=== PATIENT | female | born 1945 | race Caucasian/White ===

== ENCOUNTER 2023-05-07 12:06 | Emergency (ER) | payer MEDICARE, OTHER, SELFPAY ==
--- NOTE | ~2023-05-07 | CT_ITS ---
EXAMINATION: CT CHEST WITH CONTRAST CT ABDOMEN AND PELVIS WITH CONTRAST CLINICAL INFORMATION: Mass on chest x-ray. Question lung carcinoma. Abdominal cramps, blood in stool, question diverticulitis. COMPARISON: None available. TECHNIQUE: Multidetector volumetric imaging was performed through the chest, abdomen and pelvis following the administration of oral and 85 mL of Omnipaque 350 intravenous contrast. Sagittal and coronal reformatted images were obtained on the technologist's workstation. Axial MIP volume rendering provided. DLP: 782 mGy-cm. FINDINGS: CHEST: Lungs: Trachea and central airway are patent. Multifocal airspace and ground-glass opacities are present in bilateral lungs. Multifocal opacities in the right middle lobe, prominent multifocal opacities in the right lower lobe, prominent multifocal opacities in the left lower lobe, and scattered foci in the left upper lobe, as well as involvement of the right upper lobe. Findings are nonspecific. Differential considerations include: infectious, inflammatory process. There is an 8 mm nodule in the right lower lobe. Hounsfield measurement 302. Partial calcification is suspected in the nodule. 4.5 mm nodule in the right lower lobe (5:341) No pleural effusion. No pneumothorax. Mediastinum: Visualized thyroid gland appears unremarkable. Subcentimeter mediastinal lymph nodes. Subcentimeter right hilar lymph node. No pathologically enlarged lymph nodes seen. The heart is of normal size. There is no pericardial effusion. Central vascular structures are unremarkable. Chest Wall/Axilla: Right axillary lymph node measuring 1 cm. Osseous structures: Multilevel degenerative changes in the spine. Bilateral glenohumeral joint arthritis. ABDOMEN/PELVIS: Liver, Gallbladder, Biliary Tree: Slight low-attenuation of the liver with respect to spleen, suggesting mild hepatic steatosis. No liver lesion seen. No intrahepatic biliary duct dilatation. The gallbladder is unremarkable with no evidence of radiopaque gallstones, gallbladder wall thickening, or pericholecystic inflammatory changes. Pancreas: Normal enhancement. No acute inflammatory changes. Spleen: Unremarkable. Adrenal Glands: Unremarkable. Kidneys and Ureters: 4.3 cm right renal cyst, for which no follow-up is indicated. Mild prominence of the right renal pelvis without hydroureter. No acute findings seen in the left kidney. Bladder: Unremarkable. Gastrointestinal Tract: There is diverticula in the sigmoid colon and descending colon. The sigmoid colon and descending colon are nondistended, with diffuse wall thickening, which could reflect diverticulitis or colitis. The stomach is nondistended. No dilated small bowel loops. Appendix appears unremarkable. No free air or significant free fluid is seen. Abdominal Wall: No hernia is demonstrated. Lymphovascular Structures: Lymph nodes: No pathologically enlarged lymph nodes are seen in the abdomen or pelvis. There is a 1.1 cm right inguinal lymph node. Vascular: Normal caliber aorta. Atherosclerotic vascular calcification. Pelvic Viscera: Unremarkable. OSSEOUS STRUCTURES: Left hip arthroplasty. Levoconvex scoliosis of the lumbar spine. Multilevel advanced disc degenerative changes in the visualized lumbar spine. Right hip arthritis. No suspicious bony lesion is seen. CT/CT abdomen pelvis w IV con IMPRESSION: 1. Multifocal airspace and ground-glass opacities in bilateral lungs. Differential considerations include: infectious, inflammatory processes. Recommend short-term follow-up CT for reassessment and to ensure resolution of the findings. 2. Pulmonary nodules. Larger nodule measures 8 mm, having increased density, suggestive of calcification. The additional nodule measures 4.5 mm. Correlate with prior imaging if available. Attention on follow-up imaging. According to the UPDATED 2017 Fleischner Society recommendations, the advised follow-up imaging for multiple solid nodules, the largest measuring 6 mm or greater, is: LOW RISK PATIENT: CT at 3-6 months, then consider CT at 18-24 months. HIGH RISK PATIENT: CT at 3-6 months, then at 18-24 months. 3. Diverticulosis of the sigmoid colon and descending colon. Diffuse wall thickening of the sigmoid and descending colon, which could reflect sequela of diverticulitis or colitis. Recommend follow-up CT to ensure resolution of these findings, and exclude other etiologies. 4. Additional findings and details as above.
--- NOTE | ~2023-05-07 | XR_ITS ---
EXAMINATION: XR CHEST 2 VIEW CLINICAL INFORMATION: Pain COMPARISON: None TECHNIQUE: PA and lateral views of the chest obtained. FINDINGS: A 10 mm nodule is evident in the right midlung zone, between the seventh and eighth posterior ribs in the mid clavicular line. The left lung is clear. There are no pleural effusions. The cardiomediastinal silhouette is nonenlarged. Thoracolumbar scoliosis is evident. There are surgical anchors in the right humeral head. XR/XR chest 2V IMPRESSION: Right midlung zone 10 mm nodule. In the absence of prior studies documenting stability, thoracic CT is recommended for further characterization.
--- NOTE | 2023-05-07 12:41 | ED.GENADULT ---
HPI - General Adult General Stated complaint: Diarrhea 1 week Related Data Allergies Allergy/AdvReac Type Severity Reaction Status Date / Time No Known Allergies Allergy Verified 05/07/23 12:43 Course Course Course Narrative: RME- 78 year old female presents for evaluation of flu-like symptoms and diarrhea for one week. She also complains of bloody bowel movements. Plan for labs, viral swabs and stool testing
[2023-05-07 12:43] VITALS: BP 138/57; PULSE 82; RESP 16; TEMP 36.6; O2SAT 97; BMI 29.8
--- NOTE | 2023-05-07 12:43 | ECG_ITS ---
Test Reason : PAIN Blood Pressure : / mmHG Vent. Rate : 073 BPM Atrial Rate : 073 BPM P-R Int : 192 ms QRS Dur : 096 ms QT Int : 380 ms P-R-T Axes : 015 -39 018 degrees QTc Int : 418 ms Normal sinus rhythm Left axis deviation Moderate voltage criteria for LVH, may be normal variant ( R in aVL , Alvin product ) Abnormal ECG No previous ECGs available Referred By: Luis M Farah Electronically Signed By:VITOR DOMINGUEZ
[2023-05-07 13:48] LABS: MANUAL DIFF FLAG NO
[2023-05-07 13:51] LABS: Basophils Percent Auto 0.3 % (0-2); Eosinophils Percent Auto 0.3 % (0-4); Hematocrit 38.1 % (37.0-47.0); Hemoglobin 12.5 g/dl (12.0-16.0); Imm Gran Abs Auto 0.03 X10*3/uL (0.00-0.03); Imm Gran Pct Auto 0.4 % (0.0-0.4); Lymphocytes Absolute Auto 1.2 X10*3/uL (1.2-4.9); Lymphocytes Percent Auto 15.6 % (20-40); Mean Corpuscular HGB Conc 32.8 g/dl (31.0-35.0); Mean Corpuscular Hemoglobin 31.1 pg (27.0-33.0); Mean Corpuscular Volume 94.8 fL (80.0-98.0); Mean Platelet Volume 10.1 fL (9.4-12.3); Monocytes Absolute Auto 0.5 X10*3/uL (0.1-1.2); Monocytes Percent Auto 6.2 % (2-11); Neutrophils Absolute Auto 5.7 x10*3/uL (2.0-8.3); Neutrophils Percent Auto 77.2 % (45-73); Platelet Count 159 X10*3/uL (160-400); Red Blood Count 4.02 X10*6/uL (4.20-5.50); Red Cell Distribution Width 12.7 % (11.0-16.0); White Blood Count 7.4 X10*3/uL (4.8-10.8)
[2023-05-07 13:57] LABS: Prothrombin Time 12.7 SEC (11.1-13.3)
[2023-05-07 14:05] LABS: Alanine Aminotransferase 19 U/L (0-31); Albumin Level 3.7 g/dL (3.5-5.0); Alkaline Phosphatase 90 U/L (39-117); Anion Gap 10 (12-20); Aspartate Amino Transferase 22 U/L (5-31); Bilirubin Total 0.3 mg/dL (0.0-1.0); Blood Urea Nitrogen 11 mg/dL (9-16); Calcium 9.3 mg/dL (8.4-10.2); Carbon Dioxide 30 mmol/L (22-29); Chloride 105 mmol/L (96-108); Creatinine Clr Calc Pharmacy 60.4; Estimated Glomerular Filt Rate > 60; Glucose Random 139 mg/dL (60-115); Lipase 20 U/L (8-78); Potassium 4.1 mmol/L (3.3-5.1); Sodium 141 mmol/L (135-145); Total Protein 6.7 g/dL (6.5-8.0)
[2023-05-07 15:00] LABS: Influenza A PCR NEGATIVE (Negative); Influenza B PCR NEGATIVE (Negative); Resp Syncy Virus RNA Qual PCR NEGATIVE (Negative); SARS COV2 PCR INHOUSE NEGATIVE (Negative)
--- NOTE | 2023-05-07 16:37 | ED.GENADULT ---
HPI - General Adult General Chief complaint: Abdominal Pain Stated complaint: Diarrhea 1 week Time Seen by Provider: 05/07/23 16:14 Source: patient Mode of arrival: ambulatory Limitations: no limitations History of Present Illness HPI narrative: 78-year-old female history of diverticulosis, diverticulitis, hypertension, presents to ED for diarrhea for 1 week and this morning seeing small amount of blood in stool. Patient states stool is brown. Patient states she was on a cruise and tested positive for COVID started having URI symptoms then during the cruise she developed diarrhea which resolved with Imodium then started again this morning. Patient states went on a cruise 1 week ago. Patient denies any chest pain or shortness of breath. Patient denies any dizziness or headache. Related Data Previous Rx's Medication Instructions Recorded acetaminophen 325 mg capsule 325 mg PO QID PRN pain 7 days #28 05/07/23 (Tylenol) caps amoxicillin 875 mg-potassium 1 tab PO TID 10 days #30 tabs 05/07/23 clavulanate 125 mg tablet Allergies Allergy/AdvReac Type Severity Reaction Status Date / Time No Known Allergies Allergy Verified 05/07/23 12:43 Review of Systems Review of Systems: Resolved URI symptoms. Resolved COVID now diarrhea for 1 week and this morning 1 episode of blood in stool Yes all other systems are reviewed and are negative PMFSH Social History Social History Advance Directives: No Advance Directives Information Provided: No Physical Exam ED Vital Signs: Vital Signs - 24 hr 05/07/23 12:43 05/07/23 23:00 Temperature 98 F 98.8 F Pulse Rate 82 74 Respiratory Rate 16 18 Blood Pressure 138/57 L 135/63 Pulse Oximetry 97 95 Oxygen Delivery Method Room Air Room Air BMI result Body Mass Index 29.8 Const General: cooperative, healthy appearing, comfortable, no acute distress, well developed, alert and awake Orientation/consciousness: oriented to person, oriented to place, oriented to time and patient oriented x3 HENMT Head: Yes normal to inspection, Yes No palpable skull fracture present, Yes normocephalic and Yes atraumatic Eyes General: appearance normal, both eyes and all related structures Neck Neck: Yes normal visual inspection, Yes full ROM, Yes no lymphadenopathy, Yes no meningeal signs, Yes trachea midline, Yes supple, No anterior neck swelling and No tender Chest Chest palpation & inspection: normal inspection of the chest and normal palpation of entire chest wall Resp Effort & Inspection: normal respiratory effort and able to speak in complete sentences Auscultation: clear to auscultation bilaterally Cardio Jugular venous distension: no JVD Heart sounds: S1 normal heart sound present and S2 normal heart sound present GI Inspection: Yes normal to inspection Palpation (GI): Soft to palpation, not firm, Tenderness to palpation present (GI) in the LLQ and in the RLQ, no guarding and not rigid Other: Rectal exam negative for black stool, bright red blood, hemorrhaging, or melena. Stool is brown General: Yes no CVA tenderness Back/Spine/Pelvis Back: no CVA tenderness and No back tenderness Skin General skin exam: no rashes or lesions noted, elasticity normal and turgor normal Neuro General: oriented to person, oriented to place, oriented to time, patient oriented x3, gait normal, tone normal, moves all extremities, Normal light touch and pain sensation, no meningeal signs, no focal motor deficits, CN's II-XI intact bilaterally and normal sensation to monofilament Extrem General: Yes normal to inspection and Yes full ROM Psych Appearance: grossly normal, well kempt and not disheveled Medications Administered Discontinued Medications Generic Name Dose Route Start Last Admin Trade Name Freq PRN Reason Stop Dose Admin Amoxicillin/Clavulanate Potassium 875 mg 05/07/23 23:00 05/07/23 23:16 Amoxicillin/Potassium Clav 875 Mg Tablet PO 05/07/23 23:01 875 mg ONCE ONE Administration Famotidine 20 mg 05/07/23 16:40 05/07/23 16:56 Famotidine/Pf 20 Mg/2 Ml Vial IVPUSH 05/07/23 16:41 20 mg ONCE ONE Administration Sodium Chloride 1,000 mls @ 999 mls/hr 05/07/23 16:27 05/07/23 19:08 Ns IV 05/07/23 17:27 Infused .Q1H1M STA Infusion Iohexol 100 ml 05/07/23 17:58 05/07/23 17:58 Iohexol 350 Mg/Ml 100 Ml Infus..Btl IV 05/07/23 17:59 85 ml ONCE ONE Administration Medical Decision Making Medical Decision Making MDM Narrative: 78-year-old female history of diverticulosis, hypertension, diverticulitis presents to ED for 1 week of diarrhea recently went on a cruise 1 episode of bloody stool. Patient recently tested for COVID last Positive for lower abdominal tenderness on palpation. Was sent for CT scan of abdomen. Chest x-ray shows nodule will do chest CT. 10:39pm: THe abdominal CT scan shows early diverticulitis. Chest CT shows ground-glass opacities. Patient was positive for COVID as most recent last Tuesday and then tested herself negative today. Case discussed with Dr. Bah of hospitalist who states no need for antibiotics for the chest CT reading due to patient recently having COVID and his COVID presentation on CT scan. Patient could be discharged with oral antibiotics for diverticulitis. Patient informed to follow up with primary care provider. Second troponin negative. Patient given copy of labs and images for follow-up Differential Diagnosis Differential Diagnoses: The differential diagnosis associated with the presentation includes (Traveler's diarrhea, COVID, diverticulitis,) Admission/Observation Consideration of admission/observation: Escalation of care including admission/observation considered Consult Healthcare Provider Management of the patient was discussed with: Hospitalist (Dr. Ma) Lab Data MDM Lab Attestation statement: I reviewed the patient's lab results. 05/07/23 13:40 05/07/23 13:40 Labs: Lab Results 05/07/23 05/07/23 05/07/23 Range/Units 13:40 16:42 16:43 WBC 7.4 (4.8-10.8) X10*3/uL RBC 4.02 L (4.20-5.50) X10*6/uL Hgb 12.5 (12.0-16.0) g/dl Hct 38.1 (37.0-47.0) % MCV 94.8 (80.0-98.0) fL MCH 31.1 (27.0-33.0) pg MCHC 32.8 (31.0-35.0) g/dl RDW 12.7 (11.0-16.0) % Plt Count 159 L (160-400) X10*3/uL MPV 10.1 (9.4-12.3) fL Immature Gran % (Auto) 0.4 (0.0-0.4) % Neut % (Auto) 77.2 H (45-73) % Lymph % (Auto) 15.6 L (20-40) % [place] % (Auto) 6.2 (2-11) % Eos % (Auto) 0.3 (0-4) % Baso % (Auto) 0.3 (0-2) % Lymph # (Auto) 1.2 (1.2-4.9) X10*3/uL [place] # (Auto) 0.5 (0.1-1.2) X10*3/uL Eos # (Auto) 0.0 (0.0-0.4) X10*3/uL Baso # (Auto) 0.0 (0.0-0.2) X10*3/uL Abs Immat Gran (auto) 0.03 (0.00-0.03) X10*3/uL Absolute Neuts (auto) 5.7 (2.0-8.3) x10*3/uL Absolute Nucleated RBC 0.000 (0.0-0.012) X10*3/uL Nucleated RBC % (auto) 0.0 (0.0-0.2) /100WBC PT 12.7 (11.1-13.3) SEC INR 1.0 (0.9-1.1) Sodium 141 (135-145) mmol/L Potassium 4.1 (3.3-5.1) mmol/L Chloride 105 (96-108) mmol/L Carbon Dioxide 30 H (22-29) mmol/L Anion Gap 10 L (12-20) BUN 11 (9-16) mg/dL Creatinine 0.75 (0.5-1.4) mg/dL Estim Creat Clear Calc 60.4 Estimated GFR > 60 Random Glucose 139 H (60-115) mg/dL Calcium 9.3 (8.4-10.2) mg/dL Total Bilirubin 0.3 (0.0-1.0) mg/dL AST 22 (5-31) U/L ALT 19 (0-31) U/L Alkaline Phosphatase 90 (39-117) U/L Troponin I High Sens 8.2 (<3.5-17.0) ng/L Total Protein 6.7 (6.5-8.0) g/dL Albumin 3.7 (3.5-5.0) g/dL Lipase 20 (8-78) U/L Urine Color Urine Appearance Urine pH (5.0-9.0) Ur Specific [place] (1.005-1.025) Urine Protein (Neg-Trace) mg/dL Urine Glucose (UA) (Negative) mg/dL Urine Ketones (Negative) mg/dL Urine Blood (Negative) Urine Nitrite (Negative) Ur Leukocyte Esterase (Negative) Urine RBC (0-2) /HPF Urine WBC (0-5) /HPF Ur Squamous Epith Cells (0-2) /HPF Urine Bacteria (None Seen) Hyaline Casts (0-2) /LPF Stool Occult Blood NEGATIVE (NEGATIVE) Influenza Type A (PCR) NEGATIVE (Negative) Influenza Type B (PCR) NEGATIVE (Negative) RSV RNA Qual (PCR) NEGATIVE (Negative) SARS-CoV-2 RNA (RT-PCR) NEGATIVE (Negative) Blood Type A Positive Antibody Screen NEGATIVE 05/07/23 Range/Units 21:51 WBC (4.8-10.8) X10*3/uL RBC (4.20-5.50) X10*6/uL Hgb (12.0-16.0) g/dl Hct (37.0-47.0) % MCV (80.0-98.0) fL MCH (27.0-33.0) pg MCHC (31.0-35.0) g/dl RDW (11.0-16.0) % Plt Count (160-400) X10*3/uL MPV (9.4-12.3) fL Immature Gran % (Auto) (0.0-0.4) % Neut % (Auto) (45-73) % Lymph % (Auto) (20-40) % [place] % (Auto) (2-11) % Eos % (Auto) (0-4) % Baso % (Auto) (0-2) % Lymph # (Auto) (1.2-4.9) X10*3/uL [place] # (Auto) (0.1-1.2) X10*3/uL Eos # (Auto) (0.0-0.4) X10*3/uL Baso # (Auto) (0.0-0.2) X10*3/uL Abs Immat Gran (auto) (0.00-0.03) X10*3/uL Absolute Neuts (auto) (2.0-8.3) x10*3/uL Absolute Nucleated RBC (0.0-0.012) X10*3/uL Nucleated RBC % (auto) (0.0-0.2) /100WBC PT (11.1-13.3) SEC INR (0.9-1.1) Sodium (135-145) mmol/L Potassium (3.3-5.1) mmol/L Chloride (96-108) mmol/L Carbon Dioxide (22-29) mmol/L Anion Gap (12-20) BUN (9-16) mg/dL Creatinine (0.5-1.4) mg/dL Estim Creat Clear Calc Estimated GFR Random Glucose (60-115) mg/dL Calcium (8.4-10.2) mg/dL Total Bilirubin (0.0-1.0) mg/dL AST (5-31) U/L ALT (0-31) U/L Alkaline Phosphatase (39-117) U/L Troponin I High Sens 9.1 (<3.5-17.0) ng/L Total Protein (6.5-8.0) g/dL Albumin (3.5-5.0) g/dL Lipase (8-78) U/L Urine Color Yellow Urine Appearance Clear Urine pH 6.5 (5.0-9.0) Ur Specific [place] >= 1.030 H (1.005-1.025) Urine Protein Negative (Neg-Trace) mg/dL Urine Glucose (UA) Negative (Negative) mg/dL Urine Ketones Negative (Negative) mg/dL Urine Blood Negative (Negative) Urine Nitrite Negative (Negative) Ur Leukocyte Esterase Negative (Negative) Urine RBC 0-2 (0-2) /HPF Urine WBC 0-5 (0-5) /HPF Ur Squamous Epith Cells 0-2 (0-2) /HPF Urine Bacteria None Seen (None Seen) Hyaline Casts 0-2 (0-2) /LPF Stool Occult Blood (NEGATIVE) Influenza Type A (PCR) (Negative) Influenza Type B (PCR) (Negative) RSV RNA Qual (PCR) (Negative) SARS-CoV-2 RNA (RT-PCR) (Negative) Blood Type Antibody Screen Independent Interpretation I performed an independent interpretation of an: EKG (Normal sinus rhythm. Negative straight) and CT Scan Radiology Impression Discussion of test interpretation with radiology: I have reviewed the radiologist's reading. Radiologist Impression: [id number] [place] [id number] CT Scan Report Signed Patient: Velvet Fang MR#: [id number] : 1945 Acct:[id number] Age/Sex: 78 / F ADM Date: 05/07/23 Loc: HO.ED Attending Dr: Ordering Physician: Marcus Solares Date of Service: 05/07/23 Procedure(s): CT abdomen pelvis w IV con Accession Number(s): [id number] cc: Marcus Solares; HERIBERTO MARES MD~ EXAMINATION: CT CHEST WITH CONTRAST CT ABDOMEN AND PELVIS WITH CONTRAST CLINICAL INFORMATION: Mass on chest x-ray. Question lung carcinoma. Abdominal cramps, blood in stool, question diverticulitis. COMPARISON: None available. TECHNIQUE: Multidetector volumetric imaging was performed through the chest, abdomen and pelvis following the administration of oral and 85 mL of Omnipaque 350 intravenous contrast. Sagittal and coronal reformatted images were obtained on the technologist's workstation. Axial MIP volume rendering provided. DLP: 782 mGy-cm. FINDINGS: CHEST: Lungs: Trachea and central airway are patent. Multifocal airspace and ground-glass opacities are present in bilateral lungs. Multifocal opacities in the right middle lobe, prominent multifocal opacities in the right lower lobe, prominent multifocal opacities in the left lower lobe, and scattered foci in the left upper lobe, as well as involvement of the right upper lobe. Findings are nonspecific. Differential considerations include: infectious, inflammatory process. There is an 8 mm nodule in the right lower lobe. Hounsfield measurement 302. Partial calcification is suspected in the nodule. 4.5 mm nodule in the right lower lobe (5:341) No pleural effusion. No pneumothorax. Mediastinum: Visualized thyroid gland appears unremarkable. Subcentimeter mediastinal lymph nodes. Subcentimeter right hilar lymph node. No pathologically enlarged lymph nodes seen. The heart is of normal size. There is no pericardial effusion. Central vascular structures are unremarkable. Chest Wall/Axilla: Right axillary lymph node measuring 1 cm. Osseous structures: Multilevel degenerative changes in the spine. Bilateral glenohumeral joint arthritis. ABDOMEN/PELVIS: Liver, Gallbladder, Biliary Tree: Slight low-attenuation of the liver with respect to spleen, suggesting mild hepatic steatosis. No liver lesion seen. No intrahepatic biliary duct dilatation. The gallbladder is unremarkable with no evidence of radiopaque gallstones, gallbladder wall thickening, or pericholecystic inflammatory changes. Pancreas: Normal enhancement. No acute inflammatory changes. Spleen: Unremarkable. Adrenal Glands: Unremarkable. Kidneys and Ureters: 4.3 cm right renal cyst, for which no follow-up is indicated. Mild prominence of the right renal pelvis without hydroureter. No acute findings seen in the left kidney. Bladder: Unremarkable. Gastrointestinal Tract: There is diverticula in the sigmoid colon and descending colon. The sigmoid colon and descending colon are nondistended, with diffuse wall thickening, which could reflect diverticulitis or colitis. The stomach is nondistended. No dilated small bowel loops. Appendix appears unremarkable. No free air or significant free fluid is seen. Abdominal Wall: No hernia is demonstrated. Lymphovascular Structures: Lymph nodes: No pathologically enlarged lymph nodes are seen in the abdomen or pelvis. There is a 1.1 cm right inguinal lymph node. Vascular: Normal caliber aorta. Atherosclerotic vascular calcification. Pelvic Viscera: Unremarkable. OSSEOUS STRUCTURES: Left hip arthroplasty. Levoconvex scoliosis of the lumbar spine. Multilevel advanced disc degenerative changes in the visualized lumbar spine. Right hip arthritis. No suspicious bony lesion is seen. CT/CT abdomen pelvis w IV con IMPRESSION: 1. Multifocal airspace and ground-glass opacities in bilateral lungs. Differential considerations include: infectious, inflammatory processes. Recommend short-term follow-up CT for reassessment and to ensure resolution of the findings. 2. Pulmonary nodules. Larger nodule measures 8 mm, having increased density, suggestive of calcification. The additional nodule measures 4.5 mm. Correlate with prior imaging if available. Attention on follow-up imaging. According to the UPDATED 2017 Fleischner Society recommendations, the advised follow-up imaging for multiple solid nodules, the largest measuring 6 mm or greater, is: LOW RISK PATIENT: CT at 3-6 months, then consider CT at 18-24 months. HIGH RISK PATIENT: CT at 3-6 months, then at 18-24 months. 3. Diverticulosis of the sigmoid colon and descending colon. Diffuse wall thickening of the sigmoid and descending colon, which could reflect sequela of diverticulitis or colitis. Recommend follow-up CT to ensure resolution of these findings, and exclude other etiologies. 4. Additional findings and details as above. Dictated By: Stanley Williamson MD Signed By: <Electronically signed by Stanley Williamson MD in OV> 05/07/231946 DD/ 20 TD/TT: Store Receiving Specialist: EULOGIO Prescription Management I considered prescription management with: Pain Medication and Antibiotic Discharge Plan Discharge Clinical Impression: Diverticulitis Patient Disposition: Home, Self-Care Instructions: Diverticulitis (ED) Additional Instructions: Recommend follow-up with primary care provider. Return to the ED immediately for worsening abdominal pain, chest pain, shortness of breath, profuse diarrhea, blood in stool, weakness, dizziness, or any other concerning symptoms. Prescriptions: New amoxicillin-pot clavulanate 875-125 mg tablet 1 tab PO TID 10 Days Qty: 30 0RF Rx Instructions: Diverticulitis dose acetaminophen [Tylenol] 325 mg capsule 325 mg PO QID PRN (Reason: pain) 7 Days Qty: 28 0RF Interventions: ED Discharge Assessment Last Done: 05/07/23 23:10 Discharge Date/Time: 05/07/23 23:10 Print Language: Djiboutian
[2023-05-07] MEDS: 0.9 % Sodium Chloride 1,000 ML 999 ML IV (16:39)
[2023-05-07] MEDS: Famotidine/PF 20 MG/2 ML VIAL IVPUSH (16:56)
[2023-05-07 17:12] LABS: Troponin-I High Sensitivity 8.2 ng/L (<3.5-17.0)
[2023-05-07 17:16] LABS: OBS1 NEGATIVE (NEGATIVE)
[2023-05-07 17:17] LABS: OBS Int Ctl Valid YES
[2023-05-07] MEDS: iohexoL 350 MG/ML 100 ML INFUS..BTL IV (17:58)
[2023-05-07 22:09] LABS: Appearance Urine Clear; Color Urine Yellow; Glucose Urine UA Negative (Negative); Leukocyte Esterase Urine Negative (Negative); Nitrite Urine Negative (Negative); PH 6.5 (5.0-9.0); Specific Gravity - Urine >= 1.030 (1.005-1.025); Urine Blood Negative (Negative); Urine Ketones Negative (Negative); Urine Protein Negative (Neg-Trace)
[2023-05-07 22:14] LABS: Bacteria Urine None Seen (None Seen); Hyaline Casts Urine 0-2 /LPF (0-2); RBC Urine 0-2 /HPF (0-2); Squamous Epithelial Cell Urine 0-2 /HPF (0-2); WBC Urine 0-5 /HPF (0-5)
[2023-05-07 22:17] LABS: Troponin-I High Sensitivity 9.1 ng/L (<3.5-17.0)
[2023-05-07 23:00] VITALS: BP 135/63; PULSE 74; RESP 18; TEMP 37.1; O2SAT 95
[2023-05-07] MEDS: Amoxicillin/Potassium Clav 875 MG TABLET PO (23:16)
== END 2023-05-07 23:10 | disposition home or self-care (01) ==
PROVIDERS: Physician Assistant; Emergency Provider Emergency Medicine; PCP Internal Medicine
DX: K57.92 Diverticulitis of intestine, part unspecified, without perforation or abscess without bleeding (principal); R19.7 Diarrhea, unspecified; I10 Essential (primary) hypertension; R10.30 Lower abdominal pain, unspecified; Z11.52 Encounter for screening for COVID-19; Z20.828 Contact with and (suspected) exposure to other viral communicable diseases
CPT/HCPCS: 0241U; 36415; 71046; 71260; 74177; 80053; 81001; 82272; 83690; 84484; 85025; 85610; 86850; 86900; 86901; 93005; 96361; 96374; 99285; Q9967

== ENCOUNTER → 2023-05-07 12:43 | Outpatient (BNV) | payer MEDICARE, OTHER, SELFPAY | PROVIDERS: Emergency Provider Emergency Medicine; PCP Internal Medicine; Visit Provider Internal Medicine | DX: R94.31 Abnormal electrocardiogram [ECG] [EKG] (principal) | CPT/HCPCS: 93010 ==